=== PATIENT | female | born 1990 | race Caucasian/White ===

== ENCOUNTER 2018-07-25 11:10 | Outpatient (CLI) | payer OTHER, SELFPAY ==
--- NOTE | 2018-07-26 10:13 | PM.OBTRLD ---
Visit Information Visit Information Date of evaluation: 07/25/18 Primary OB Provider: Angelo Stanton On-call OB Provider: Luli Wynne Reason for Evaluation: Yes non-stress test non-stress test reason: other (pelvic pain) Evaluation Evaluation Baseline heart rate: 130 Variability: Moderate (11-25) monitor accelerations: Present monitor decelerations: Absent Diagnosis, Plan/Disposition Final Diagnosis (1) 32 weeks gestation of : Current Visit: No Status: Acute Plan/Disposition Plan: 28 year old at 32+3 weeks. Came to the center for pelvic pain. No contractions on monitor. Reactive NST. Suspect pubic symphysis pain. Has follow up in clinic this week with Dr. Stanton.
--- NOTE | 2018-07-26 10:16 | P.TNLD_ITS ---
Visit Information Visit Information Date of evaluation: 07/25/18 Primary OB Provider: Angelo Stanton On-call OB Provider: Luli Wynne Reason for Evaluation: Yes non-stress test non-stress test reason: other ( pelvic pain) Evaluation Evaluation Baseline heart rate: 130 Variability: Moderate (11-25) monitor accelerations: Present monitor decelerations: Absent Diagnosis, Plan/Disposition Final Diagnosis (1) 32 weeks gestation of : Current Visit: No Status: Acute Plan/Disposition Plan: 28 year old at 32+3 weeks. Came to the center for pelvic pain. No contractions on monitor. Reactive NST. Suspect pubic symphysis pain. Has follow up in clinic this week with Dr. Stanton.
== END 2018-07-25 12:01 | disposition home or self-care (01) ==
LOC: LABOR 11:15 → OB 12-20 11:52
PROVIDERS: PCP Family Medicine; Visit Provider Family Medicine
DX: Z34.83 Encounter for supervision of other normal pregnancy, third trimester (principal); R10.2 Pelvic and perineal pain; Z3A.32 32 weeks gestation of pregnancy
CPT/HCPCS: 59025; G0378; G0379

== ENCOUNTER → 2018-08-18 10:29 | Outpatient (CLI) | payer OTHER, SELFPAY ==
[2018-08-19 13:43] LABS: Strep Grp B PCR NEG for Grp B Strep
== END ==
PROVIDERS: PCP Family Medicine; Visit Provider Family Medicine
DX: Z34.83 Encounter for supervision of other normal pregnancy, third trimester (principal); Z3A.35 35 weeks gestation of pregnancy
CPT/HCPCS: 87653

== ENCOUNTER 2018-09-12 12:09 | Inpatient (IN) | payer OTHER, SELFPAY ==
[2018-09-12] VITALS (8 sets, daily range): BP systolic 82–117; BP diastolic 45–63; PULSE 68–86; RESP 12–16; TEMP 36.3–36.7; O2SAT 91–98
--- NOTE | 2018-09-12 | PATH_ITS ---
[facility] Accession Number: [id number] . 01 Material submitted: . LEFT AND RIGHT FALLOPIAN TUBESEGMENT . 02 Diagnosis: Segments of Left and Right Fallopian Tubes (Sterilization Procedure): No significant pathologic change. MRV/09/14/2018 . 02 Electronically signed: . Zane Ballesteros MD, Pathologist NPI- [id number] . 01 Gross description: . Received one formalin-filled container labeled with the patient's name and labeled left and right fallopian tube segments. Received in the same container are two non-fimbriated cylindrical-shaped portions of tissue. The first measures 0.5 cm in diameter by 0.7 cm in length; inked blue, bisected, and entirely submitted in cassette A1 to be possibly further sectioned at the time of embedding. The second piece measures 0.5 cm in diameter by 0.7 cm in length; inked blue, bisected, and entirely submitted in cassette A2 to be possibly further sectioned at the time of embedding. ([id number]) /FRR . 02 Pathologist provided ICD-10: Z30.2 . 02 CPT . [id number] Performed at: [address] [facility] [address], [place], [place] [id number] MD Blayne Burger MD Phone: [phone] Performed at: [facility] [address] [place], [place] [id number] MD James Parson MD Phone: [phone]
[2018-09-12] MEDS: LACTATED RINGERS 1,000 ML 42 ML IV ×4 (12:46→16:17)
[2018-09-12 12:49] LABS: Add Manual Diff / Slide Review NO; Basophils Percent Auto 0.6 % (0-2); Eosinophils Percent Auto 0.5 % (2-4); Hematocrit 35.7 % (36-46); Lymphocytes Percent Auto 17.3 % (25-40); Mean Corpuscular HGB Conc 33.5 % (30-36); Mean Corpuscular Hemoglobin 29.3 PG (26-34); Mean Corpuscular Volume 87.4 fL (80-100); Monocytes Percent Auto 6.8 % (3-14); Neutrophils Absolute Auto 8400 /uL (3000-5900); Neutrophils Percent Auto 74.8 % (50-75); Platelet Count 141 X10^3/uL (150-400); Red Blood Cell Count 4.09 X10^6/uL (4.0-5.2); Red Cell Distribution Width 14.3 % (11.6-14.8); White Blood Cell Count 11.3 X10^3/uL (4.5-11.0)
--- NOTE | 2018-09-12 13:07 | PM.HP.1 ---
History of Present Illness Date Patient Seen: 09/12/18 Time Patient Seen: 13:07 Chief complaint: repeat c section [facility] [id number] Narrative: 28-year-old female G3 para 2 at 39 weeks gestational age comes in for repeat section. Two previous C-sections. care was established early at the [place] base she transferred to our clinic at 30 weeks. problems include previous otherwise no other significant medical or obstetrical problems. She has had routine care. She had a total weight gain of approximately 20 lb. Patient states in the last week she has felt well. Baby's been moving an active she has no headache no fevers no chills. Patient has had no difficulty with nausea vomiting. She has had some ongoing back and pelvic discomfort. Patient has not had any difficulty with movement of the baby. labs blood type O positive antibody screen negative hematocrit 39.2 platelet count 235 VDRL nonreactive HIV negative GC chlamydia negative rubella immune. Patient and were reviewed the risks of a common complications. It would be okay if they needed a blood transfusion. And consent was obtained previously for bilateral tubal ligation which they would like to continue with. Past medical history patient denies any significant past medical history. Past surgical history C-sections. Social history. No smoking no drinking. Does not use illicit drugs Meds Home Medications Medication Instructions Recorded Confirmed Type 1 tab PO DAILY #90 tab 08/01/18 Rx vitamin,calcium,ukgflona-ckfi-muong acid tablet breast pump #1 each 09/08/18 09/08/18 Rx Allergies Allergy/AdvReac Type Severity Reaction Status Date / Time No Known Drug Allergies Allergy Verified 07/27/18 16:06 Exam Narrative Exam Narrative: . General: Alert no apparent distress. Affect is appropriate. Keith it is uncomfortable. HEENT: Neck is supple without lymphadenopathy pupils equal round and reactive. Cardio: S1-S2 regular rate and rhythm. Respiratory: Lungs clear to auscultation. Abdomen: Gravid. Extremities: Normal deep tendon reflexes trace edema. [place]: No contractions heart tones: heart tones 130 strip is reactive Objective Labs Result Diagrams: 09/12/18 11:30 Labs: Laboratory Results - last 24 hr 09/12/18 11:30 WBC 11.3 H RBC 4.09 Hgb 12.0 Hct 35.7 L MCV 87.4 MCH 29.3 MCHC 33.5 RDW 14.3 Plt Count 141 L Neut % (Auto) 74.8 Lymph % (Auto) 17.3 L [place] % (Auto) 6.8 Eos % (Auto) 0.5 L Baso % (Auto) 0.6 Neut # (Auto) 8400 H Assessment & Plan Plan: Assessment/Plan Narrative: 28-year-old G3 para 2 admitted the hospital for repeat section and bilateral tubal ligation. IV will be started. Blood count will be ordered. Consent was obtained and signed on the chart. Patient will be given cefotetan 2 g before surgical incision. Risks and common complications of the surgical procedure were reviewed including the tubal ligation.
--- NOTE | 2018-09-12 13:11 | P.HP_ITS ---
History of Present Illness Date Patient Seen: 09/12/18 Time Patient Seen: 13:07 Chief complaint: repeat c section [facility] [id number] Narrative: 28-year-old female G3 para 2 at 39 weeks gestational age comes in for repeat section. Two previous C-sections. care was established early at the [place] [place] base she transferred to our clinic at 30 weeks. problems include previous otherwise no other significant medical or obstetrical problems. She has had routine care. She had a total weight gain of approximately 20 lb. Patient states in the last week she has felt well. Baby's been moving an active she has no headache no fevers no chills. Patient has had no difficulty with nausea vomiting. She has had some ongoing back and pelvic discomfort. Patient has not had any difficulty with movement of the baby. labs blood type O positive antibody screen negative hematocrit 39.2 platelet count 235 VDRL nonreactive HIV negative GC chlamydia negative rubella immune. Patient and were reviewed the risks of a common complications. It would be okay if they needed a blood transfusion. And consent was obtained previously for bilateral tubal ligation which they would like to continue with. Past medical history patient denies any significant past medical history. Past surgical history C-sections. Social history. No smoking no drinking. Does not use illicit drugs Meds Home Medications Medication Instructions Recorded Confirmed Type 1 tab PO DAILY #90 tab 08/01/18 Rx vitamin,calcium,vkdudaoe-vovw-flmbc acid tablet breast pump #1 each 09/08/18 09/08/18 Rx Allergies Allergy/AdvReac Type Severity Reaction Status Date / Time No Known Drug Allergies Allergy Verified 07/27/18 16:06 Exam Narrative Exam Narrative: . General: Alert no apparent distress. Affect is appropriate. Keith it is uncomfortable. HEENT: Neck is supple without lymphadenopathy pupils equal round and reactive. Cardio: S1-S2 regular rate and rhythm. Respiratory: Lungs clear to auscultation. Abdomen: Gravid. Extremities: Normal deep tendon reflexes trace edema. [place]: No contractions heart tones: heart tones 130 strip is reactive Objective Labs Result Diagrams: 09/12/18 11:30 Labs: Laboratory Results - last 24 hr 09/12/18 11:30 WBC 11.3 H RBC 4.09 Hgb 12.0 Hct 35.7 L MCV 87.4 MCH 29.3 MCHC 33.5 RDW 14.3 Plt Count 141 L Neut % (Auto) 74.8 Lymph % (Auto) 17.3 L [place] % (Auto) 6.8 Eos % (Auto) 0.5 L Baso % (Auto) 0.6 Neut # (Auto) 8400 H Assessment & Plan Plan: Assessment/Plan Narrative: 28-year-old G3 para 2 admitted the hospital for repeat section and bilateral tubal ligation. IV will be started. Blood count will be ordered. Consent was obtained and signed on the chart. Patient will be given cefotetan 2 g before surgical incision. Risks and common complications of the surgical procedure were reviewed including the tubal ligation.
[2018-09-12] MEDS: CEFAZOLIN 2 GM/100 ML FROZ.PIGGY IV (13:50)
--- NOTE | 2018-09-12 14:12 | SUR.OPER ---
Supine on Padded OR bed, head on pillow, safety belt at thigh, arms secured on padded arm boards at <90 degrees abduction. Bump under right buttock. Legs uncrossed with pillow under knees, gel pad to heels, tape over blanket to lower legs.
--- NOTE | 2018-09-12 14:24 | SUR.OPER ---
[place] of viable female at 1419 - heart rate in the 120s prior to delivery.
--- NOTE | 2018-09-12 14:25 | SUR.OPER ---
Cord Blood and Placent to OB with L&D RN.
[2018-09-12] MEDS: ACETAMINOPHEN IV 1,000 MG/100 ML VIAL 400 MG IV (14:50)
--- NOTE | 2018-09-12 15:16 | PM.OP.1 ---
Operative Date/Time/Diagnoses Date of procedure: 09/12/18 Time of procedure: 15:16 Procedure & Clinicians Procedure: Procedure: Lower segment transverse section with bilateral tubal ligation Consent: Verbal and written informed consent were obtained from the patient placed on the chart. Indications: 28-year-old G3 para 2 for repeat section and tubal ligation Findings: [Normal uterus normal ovaries] [Normal female Apgars 9 and 9 direct OP] Anesthesia: [Spinal] Surgeon: [Dr. Angelo Stanton] Systems Auditor: Dr. Eryn Veras Estimated blood loss: [500 mL] Drains: [place] to gravity. IV fluids: 1800 cc Pathology: 2 segments of tubes that sent for pathology. Description of procedure: The patient was brought to the operating room after her spinal epidural, preparation, and [place] had been performed. The abdomen was prepped and draped in tested for for analgesia. When it was found to be adequate, a lower abdominal Pfannenstiel incision was made with first with a knife and cared down to the fascia with a second knife. The fascia was incised in the midline and extended laterally with a knife. Bleeding points were clamped with hemostats and Bovie coagulated. The rectus muscles were by blunt dissection. The rectus muscles were divided in the midline and the peritoneum was grasped with hemostats and carefully entered with Pink scissors. The incision was extended bilaterally. The bladder blade was then placed. The vesicoperitoneum was grasped with smooth pickups, entered with Metzenbaum scissors, and extended laterally. The bladder flap was created by gently blunt dissection and placed behind the bladder blade. The lower uterine segment was noted to be thin was carefully incised with the scalpel and extended laterally with the fingers. A live was found to be in the vertex position. The head was then easily elevated with the hand. Head was delivered without difficulty The baby was then suctioned and cried immediately, and was handed to the waiting attendant. The placenta was delivered manually. The uterus was explored with a wet lap sponge and found to be clear membranes. The first layer of the uterine closure was with running locking #1 chromic catgut suture. The second layer with an imbricating #1 chromic catgut suture. Hemostasis was carefully checked and found to be satisfactory. The bladder flap was closed with a running 2-0 chromic catgut suture. The fallopian tubes and ovaries were inspected and to be found normal bilaterally. The left fallopian tube was grasped with [place] fimbriated ends were identified. Left-sided tubal was done in modified [place] with an intervening segment taking. Left foot open tube was grasped with a [place] and the procedure was repeated on the right side. After sponge and needle counts were found to be correct the peritoneum was closed with 2-0 chromic catgut suture. Rectus muscles were approximated in the lower midline. The fascia was closed with a 2 running 0 Vicryl from lateral to midline. The subcutaneous tissue was approximated with interrupted 2.0 plain gut. Bleeding points were Bovie and coagulated. The subcutaneous tissue was approximated with 20 plain gut suture. The skin was closed with 1-0 running subcuticular stitch. Urinary output was adequate and normal patient left to the recovery room in good condition.
[2018-09-12] MEDS: KETOROLAC 30 MG/ML VIAL IV (21:25)
[2018-09-13] MEDS: KETOROLAC 30 MG/ML VIAL IV ×2 (05:56→11:32)
--- NOTE | 2018-09-13 07:47 | P.PN_ITS ---
Subjective Date Patient Seen: 09/13/18 Time Patient Seen: 07:45 Interval history: Doing well. [place] catheter is out up ambulating tolerating diet. No difficulty with urination yet. Pain is well controlled. Breast- feeding is going well. No significant edema vital signs have been stable. Using Toradol ibuprofen. Exam Vital Signs (past 8 hours): Oxygen Delivery Method Room Air Oxygen Flow Rate 2 Narrative Exam Narrative: . General: Alert no apparent distress. Affect is appropriate. Keith it is uncomfortable. HEENT: Neck is supple without lymphadenopathy pupils equal round and reactive. Cardio: S1-S2 regular rate and rhythm. Respiratory: Lungs clear to auscultation. Abdomen: Uterus firm. Incision clean dry and intact. Extremities: Normal deep tendon reflexes trace edema. Objective Labs Result Diagrams: 09/12/18 11:30 Labs: Laboratory Results - last 24 hr 09/12/18 09/12/18 11:30 11:30 WBC 11.3 H RBC 4.09 Hgb 12.0 Hct 35.7 L MCV 87.4 MCH 29.3 MCHC 33.5 RDW 14.3 Plt Count 141 L Neut % (Auto) 74.8 Lymph % (Auto) 17.3 L [place] % (Auto) 6.8 Eos % (Auto) 0.5 L Baso % (Auto) 0.6 Neut # (Auto) 8400 H Blood Type O Positive Antibody Screen Negative Assessment & Plan Plan: Assessment/Plan Narrative: Postoperative day 1 status post [place] removed SCDs removed up ambulating starting general diet. Monitor for bowel movement urination. Vital signs were stable afebrile. Recheck hemoglobin hematocrit today. Mild incisional drainage but normal. Continue with routine care. Blood pressure reflexes normal
--- NOTE | 2018-09-13 07:48 | P.PN_ITS ---
Subjective Date Patient Seen: 09/13/18 Time Patient Seen: 07:47 Interval history: Patient seen and examined. Doing well. weight today is 7 lb 1 oz. Breast-feeding is going well. Positive bowel movements urination. Blood pressures have been stable. As well as temperature. Respiratory rate normal. Mom has no concerns. Exam Vital Signs (past 8 hours): Oxygen Delivery Method Room Air Oxygen Flow Rate 2 Narrative Exam Narrative: Gen.: Alert and vigorous active and moving all extremities. HEENT: NCAT a positive red reflex. Tympanic canals are patent nares are patent. Oral mucosa is moist soft palate and lip are intact. Neck is supple without lymphadenopathy. No thyroid masses or cysts. Cardio: S1 and S2 regular rate and rhythm no appreciable murmurs. Respiratory: Lungs are clear to auscultation no wheezes or crackles. Normal respiratory effort. Abdomen: Soft no liver spleen enlargement no obvious hernia. Extremities:Full range of motion no hip clicks or pops. Normal femoral pulses. : Normal external genitalia. Anus is patent. Neurologic: Positive Kristin and suck reflex. Objective Labs Result Diagrams: 09/12/18 11:30 Labs: Laboratory Results - last 24 hr 09/12/18 09/12/18 11:30 11:30 WBC 11.3 H RBC 4.09 Hgb 12.0 Hct 35.7 L MCV 87.4 MCH 29.3 MCHC 33.5 RDW 14.3 Plt Count 141 L Neut % (Auto) 74.8 Lymph % (Auto) 17.3 L [place] % (Auto) 6.8 Eos % (Auto) 0.5 L Baso % (Auto) 0.6 Neut # (Auto) 8400 H Blood Type O Positive Antibody Screen Negative Assessment & Plan Plan: Assessment/Plan Narrative: Term female doing well. But vital signs are stable afebrile. [place] screening tests will be done today. Potential discharge tomorrow.
[2018-09-13 08:11] LABS: Add Manual Diff / Slide Review NO; Basophils Percent Auto 0.4 % (0-2); Eosinophils Percent Auto 0.8 % (2-4); Hematocrit 32.9 % (36-46); Lymphocytes Percent Auto 12.3 % (25-40); Mean Corpuscular HGB Conc 33.4 % (30-36); Mean Corpuscular Hemoglobin 29.5 PG (26-34); Mean Corpuscular Volume 88.2 fL (80-100); Monocytes Percent Auto 8.5 % (3-14); Neutrophils Absolute Auto 9900 /uL (3000-5900); Platelet Count 131 X10^3/uL (150-400); Red Blood Cell Count 3.73 X10^6/uL (4.0-5.2); Red Cell Distribution Width 14.6 % (11.6-14.8); White Blood Cell Count 12.6 X10^3/uL (4.5-11.0)
[2018-09-13] MEDS: PRENATAL VIT,CALC/IRON/FOLIC 1 TABLET 1 TAB PO (09:33)
[2018-09-13] MEDS: DOCUSATE 250 MG CAPSULE PO (09:33)
[2018-09-13] MEDS: OXYCODONE/ACETAMINOPHEN 5/325 TABLET 2 TAB PO (10:27)
--- NOTE | 2018-09-13 17:12 | P.DS_ITS ---
History of Present Illness [id number] Narrative: 28-year-old female G3 para 2 at 39 weeks gestational age comes in for repeat section. Two previous C-sections. care was established early at the [place] base she transferred to our clinic at 30 weeks. problems include previous otherwise no other significant medical or obstetrical problems. She has had routine care. She had a total weight gain of approximately 20 lb. Patient states in the last week she has felt well. Baby's been moving an active she has no headache no fevers no chills. Patient has had no difficulty with nausea vomiting. She has had some ongoing back and pelvic discomfort. Patient has not had any difficulty with movement of the baby. labs blood type O positive antibody screen negative hematocrit 39.2 platelet count 235 VDRL nonreactive HIV negative GC chlamydia negative rubella immune. Patient and were reviewed the risks of a common complications. It would be okay if they needed a blood transfusion. And consent was obtained previously for bilateral tubal ligation which they would like to continue with. Past medical history patient denies any significant past medical history. Past surgical history C-sections. Social history. No smoking no drinking. Does not use illicit drugs Discharge Providers Date of admission: 09/12/18 12:09 Primary care physician: Angelo Stanton MD Consults: 09/12/18 16:39 Consult to Functional Analyst Routine Comment: 09/12/18 17:35 Consult to Functional Analyst Routine Comment: Discharge provider: Angelo Stanton MD Discharge Date: 09/13/18 Summary Discharge Diagnosis: Intrauterine Repeat section with tubal ligation Routine care Hospital Course: Routine care. Mom left before typical discharge. As she was anxious to go home 24 hr after . I encouraged to stay 1 more day. She requested to be discharged. She will watch for bleeding infection fevers chills. Lower extremity edema or swelling. She will call office immediately a problems. Exam Vital Signs (past 8 hours): Oxygen Delivery Method Room Air Oxygen Flow Rate 2 Objective Labs Result Diagrams: 09/13/18 08:05 Labs: Laboratory Results - last 24 hr 09/13/18 08:05 WBC 12.6 H RBC 3.73 L Hgb 11.0 L Hct 32.9 L MCV 88.2 MCH 29.5 MCHC 33.4 RDW 14.6 Plt Count 131 L Neut % (Auto) 78.0 H Lymph % (Auto) 12.3 L [place] % (Auto) 8.5 Eos % (Auto) 0.8 L Baso % (Auto) 0.4 Neut # (Auto) 9900 H Discharge Plan Discharge Plan Patient Disposition: Home Discharge Med Rec/Prescriptions Prescriptions: New docusate sodium [Colace] 100 mg capsule 200 mg PO BEDTIME Qty: 30 RF: 0 oxycodone-acetaminophen [Percocet] 5-325 mg tablet 2 tab PO Q4-6H PRN (Reason: pain) Qty: 30 RF: 0 ibuprofen [IBU] 600 mg tablet 600 mg PO TID PRN (Reason: pain) Qty: 30 RF: 0 Continue prenat.vits,josé miguel,fke-ixmw-fpjua [ Vitamin] tablet 1 tab PO DAILY Qty: 90 RF: 3 breast pump device .ROUTE .MEDSUPPLY Qty: 1 RF: 0 Discharge Data Primary Care Provider: Angelo Stanton Attending Provider: Angelo Stanton Admit Date/Time: 09/12/18 12:09
[2018-09-13 17:29] VITALS: BP 117/52; PULSE 74; RESP 16; TEMP 36.3
== END 2018-09-13 18:10 | disposition home or self-care (01) | DRG 785 ==
PROVIDERS: Admitting Provider Family Medicine; PCP Family Medicine; Visit Provider Family Medicine
PROC: 10D00Z1 Extraction of Products of Conception, Low, Open Approach (ICD-10-PCS; CPT 59514; principal; 2018-09-12 13:30)
DX: O34.219 Maternal care for unspecified type scar from previous cesarean delivery (principal); Z3A.39 39 weeks gestation of pregnancy; Z37.0 Single live birth; Z30.2 Encounter for sterilization
CPT/HCPCS: 36415; 59050; 59514; 59515; 85025; 86850; 86900; 86901; J0131; J0690; J1885; J2274; J2405; J2590

== ENCOUNTER → 2020-12-20 09:17 | Outpatient (CLI) | payer OTHER, SELFPAY ==
[2020-12-20 10:34] LABS: Add Manual Diff / Slide Review NO; Basophils Absolute Auto 0 /uL (0-100); Basophils Percent Auto 0.5 % (0-2); Eosinophils Absolute Auto 100 /uL (0-450); Eosinophils Percent Auto 1.2 % (2-4); Hematocrit 40.2 % (36-46); Lymphocytes Absolute Auto 1800 /uL (1100-4500); Lymphocytes Percent Auto 26.4 % (25-40); Mean Corpuscular HGB Conc 32.3 % (30-36); Mean Corpuscular Hemoglobin 28.1 PG (26-34); Monocytes Absolute Auto 400 /uL (0-900); Monocytes Percent Auto 6.5 % (3-14); Neutrophils Absolute Auto 4300 /uL (1500-7000); Neutrophils Percent Auto 65.4 % (50-75); Platelet Count 210 X10^3/uL (150-400); Red Blood Cell Count 4.63 X10^6/uL (4.0-5.2); Red Cell Distribution Width 13.7 % (11.6-14.8); White Blood Cell Count 6.6 X10^3/uL (4.5-11.0)
[2020-12-20 10:47] LABS: Alanine Aminotransferase 21 IU/L (<35); Albumin 4.7 g/dL (3.5-5.0); Albumin Globulin Ratio 1.3 (1.0-2.8); Alkaline Phosphatase 122 U/L (38-126); Aspartate Aminotransferase 22 IU/L (14-36); BUN Creatinine Ratio 7.7 (6-22); Bilirubin Total 1.4 mg/dL (0.2-1.3); Blood Urea Nitrogen 5 mg/dL (7-17); Calcium 9.5 mg/dL (8.4-10.2); Carbon Dioxide 27 mmol/L (22-32); Chloride 105 mmol/L (98-107); Estimated Glomerular Filt Rate > 60.0 mL/min (>60); Globulin 3.6 g/dL (1.7-4.1); Glucose 83 mg/dL (70-100); HEMOLYSIS < 15 (0-50); Potassium 3.5 mmol/L (3.4-5.1); Sodium 140 mmol/L (137-145); Total Protein 8.3 g/dL (6.3-8.2)
[2020-12-20 11:39] LABS: Thyroid Stimulating Hormone 0.801 uIU/mL (0.47-4.68)
== END ==
PROVIDERS: PCP Family Medicine; Referring Provider Family Medicine; Visit Provider Family Medicine
DX: Z00.00 Encounter for general adult medical examination without abnormal findings (principal)
CPT/HCPCS: 36415; 80053; 84443; 85025

== ENCOUNTER 2020-12-25 12:15 | Emergency (ER) | payer OTHER, SELFPAY ==
[2020-12-25 12:30] VITALS: BP 119/68; PULSE 80; RESP 18; TEMP 36.9; O2SAT 96; BMI 24.9
--- NOTE | 2020-12-25 13:23 | ED_ITS ---
HPI - Female Genitourinary <HARPER Ulloa - Last Filed: 12/25/20 15:13> General Chief complaint: Urogenital-Female Stated complaint: Thinks vaginal prolapse Time Seen by Provider: 12/25/20 12:59 Source: patient Mode of arrival: Ambulatory Limitations: no limitations History of Present Illness HPI Narrative: The patient is a 30-year-old female former smoker with history of tubal ligation who presents with a chief complaint of ?I feel like my vagina is prolapsing/this she states that she felt as though she had a tampon in for a few days, then looked yesterday and saw that ?the hole is closed.She states she feels like she has to hold her genitals in. Complains of slight bloating, does complain of increased vaginal discharge that is abnormal for her. Denies any dysuria urgency or frequency. Denies any possibility of related to her tubal ligation. She denies any possibility of sexually transmitted infections as her is deployed. Related Data Previous Rx's Medication Instructions Recorded omeprazole 20 mg capsule,delayed 20 mg PO DAILY #30 cap 12/23/20 release Allergies Allergy/AdvReac Type Severity Reaction Status Date / Time No Known Drug Allergies Allergy Verified 12/23/20 09:20 Review of Systems <HARPER Ulloa - Last Filed: 12/25/20 15:13> Review of Systems Narrative: GENERAL: Denies chills, fatigue, malaise, fever, sweats. HEENT: Denies sinus pain, ear pain, sore throat, difficulty swallowing, dizziness. RESPIRATORY: Denies dyspnea, cough, wheezing, hemoptysis, sputum. CARDIOVASCULAR: Denies chest pain, palpitations, orthopnea, edema, GASTROINTESTINAL: Denies nausea, vomiting, abdominal pain, diarrhea, constipation, melena. : See HPI MUSCULOSKELETAL: denies weakness, joint pain, or bony pain SKIN: Denies rash, skin lesions, or other NEUROLOGIC: Denies weakness, headache, numbness, change in speech, confusion, seizures, incoordination. PSYCHIATRIC: No concerning psychosocial issues. 12 point review of systems is negative except for those stated above Patient History <HARPER Ulloa - Last Filed: 12/25/20 15:13> Surgical History H/O section H/O tubal ligation H/O tubal ligation alcohol intake frequency: 0-2 drinks per day Substance Use Type: marijuana Exam <HARPER Ulloa - Last Filed: 12/25/20 15:13> Narrative Exam Narrative: GENERAL: This is a well-nourished, well-developed patient, in no acute distress HEAD: Atraumatic. Normocephalic. No temporal or scalp tenderness. EYES: Pupils equal round and reactive. Extraocular motions intact. No scleral icterus. No injection or drainage. ENT: Nose without bleeding, purulent drainage or septal hematoma. Wearing a mask. Airway patent. NECK: Trachea midline. No JVD or lymphadenopathy. Supple, nontender, no meningeal signs. CARDIOVASCULAR: Regular rate and rhythm RESPIRATORY: Clear to auscultation. Breath sounds equal bilaterally. No wheezes, rales, or rhonchi. No cough. No increased respiratory effort. No accessory muscle use. GASTROINTESTINAL: Abdomen soft, active bowel sounds, non-tender, nondistended. No hepato-splenomegaly, or palpable masses. : Pelvic exam with Susan RN at bedside. No external organ prolapse noted. Slight white mucousy cervical discharge noted. No cervical motion tenderness or adnexal tenderness on bimanual exam. EXTREMITIES: No clubbing, cyanosis, or edema. No joint tenderness, effusion, or edema noted. BACK: Nontender without deformity or crepitance. No flank tenderness. NEURO: AOx3. SKIN: No rash or erythema. Initial Vital Signs Initial Vital Signs: Vital Signs Temperature 98.5 F 12/25/20 12:30 Pulse Rate 80 12/25/20 12:30 Respiratory Rate 18 12/25/20 12:30 Blood Pressure 119/68 12/25/20 12:30 Pulse Oximetry 96 12/25/20 12:30 <Roshni Brambila DO - Last Filed: 12/26/20 08:13> Initial Vital Signs Initial Vital Signs: Vital Signs Temperature 98.5 F 12/25/20 12:30 Pulse Rate 80 12/25/20 12:30 Respiratory Rate 18 12/25/20 12:30 Blood Pressure 119/68 12/25/20 12:30 Pulse Oximetry 96 12/25/20 12:30 Scores <NORTH UlloaBC - Last Filed: 12/25/20 15:13> GCS [place] coma scale eye opening: Spontaneous [place] coma scale verbal response: Orientated [place] coma scale motor response: Obey commands [place] coma scale total score: 15 Course <Brittnee Wilson PAID SEARCH MARKETING ANALYST-BC - Last Filed: 12/25/20 15:13> Orders Ordered: ED Orders 12/25/20 13:54 Genital Culture Stat Wet Prep Tric BV Magui Stat Vital Signs Vital signs: Vital Signs - 8 hr 12/25/20 12:30 12/25/20 15:06 Temperature 98.5 F Pulse Rate 80 78 Respiratory Rate 18 16 Blood Pressure 119/68 116/78 Pulse Oximetry 96 97 <Roshni Brambila DO - Last Filed: 12/26/20 08:13> Orders Ordered: ED Orders 12/25/20 13:54 Genital Culture Stat Wet Prep Tric BV Magui Stat Vital Signs Vital signs: Vital Signs - 8 hr 12/25/20 12:30 12/25/20 15:06 Temperature 98.5 F Pulse Rate 80 78 Respiratory Rate 18 16 Blood Pressure 119/68 116/78 Pulse Oximetry 96 97 MDM - Female Genitourinary <Brittnee WilsonCHANTE-BC - Last Filed: 12/25/20 15:13> Lab Data Labs: Point of Care Testing Test Results Negative Urine Dip Bedside Urine Glucose Negative Bedside Urine Bilirubin - Negative Bedside Urine Ketone - Negative Urine Specific [place] 1.015 Bedside Urine Occult Blood - Negative Bedside Urine pH 6.0 Bedside Urine Protein - Negative Bedside Urine Urobilinogen - Negative Bedside Urine Nitrite - Negative Bedside Urine Leukocytes - Negative Esterase MDM Narrative Medical decision making narrative: The patient is a 30-year-old female who presents with a chief complaint of a possible pelvic organ prolapse. She does not have any external prolapse on exam. Urinalysis shows no signs of infection, given statement of increased vaginal discharge, swabs were taken no evidence of yeast or BV at this point time. Cultures pending. Did offer to order pelvic ultrasound, but patient elected to hold off and follow up with her primary care provider instead. Patient mentions pelvic floor physical therapy, states that she might pursue this. Discussed going back to the ER for acute concerns. This includes abdominal pain with fever, inability keep down fluids etcetera. Patient has no questions or concerns upon discharge states understanding of return precautions as well as follow-up care. <Roshni Brambila DO - Last Filed: 12/26/20 08:13> Lab Data Labs: Point of Care Testing Test Results Negative Urine Dip Bedside Urine Glucose Negative Bedside Urine Bilirubin - Negative Bedside Urine Ketone - Negative Urine Specific [place] 1.015 Bedside Urine Occult Blood - Negative Bedside Urine pH 6.0 Bedside Urine Protein - Negative Bedside Urine Urobilinogen - Negative Bedside Urine Nitrite - Negative Bedside Urine Leukocytes - Negative Esterase Discharge Plan Departure Patient Disposition: Home Clinical Impression: Vaginal irritation, Vaginal discharge Instructions: DI for Vaginal Discharge Activity Restrictions/Additional Instructions: Thank you for trusting us with your care today. As discussed, there is no indication of urinary tract infection, or yeast infection/bacterial vaginosis. Please follow-up with primary care provider in the next few days. We will call you if anything comes up on the cultures As discussed, please monitor for products and exposures. Please come back to the emergency department for any acute concerns. Prescriptions: No Action omeprazole 20 mg capsule,delayed release(DR/EC) 20 mg PO DAILY Qty: 30 RF: 3 Referrals: Angelo Stanton MD [Primary Care Provider] - <Roshni Brambila DO - Last Filed: 12/26/20 08:13> Cosign ED Attending Cosignature Attestation: I was immediately available in the department for consultation. Documentation has been reviewed. I agree with assessment and plan.
[2020-12-25 15:06] VITALS: BP 116/78; PULSE 78; RESP 16; O2SAT 97
== END 2020-12-25 15:06 | disposition home or self-care (01) ==
PROVIDERS: Emergency Provider Nurse Practitioner Family; PCP Family Medicine
DX: N89.8 Other specified noninflammatory disorders of vagina (principal)
CPT/HCPCS: 81003; 81025; 87070; 87205; 87210; 99281; 99282

== ENCOUNTER 2021-05-11 13:20 | Emergency (ER) | payer OTHER, SELFPAY ==
[2021-05-11 13:24] VITALS: BP 111/71; PULSE 94; RESP 20; TEMP 36.7; O2SAT 97; BMI 22.8
--- NOTE | 2021-05-11 14:43 | DI.RAD.S_ITS ---
PROCEDURE: XR SACRUM COCCYX MIN 2V INDICATIONS: Fall TECHNIQUE: 3 views of the sacrum and coccyx acquired. COMPARISON: None. FINDINGS: Bones: No fractures or dislocations. No suspicious bony lesions. Soft tissues: Visualized bowel gas pattern is normal. No suspicious soft tissue densities. IMPRESSION: No evidence acute bony abnormality of the sacrum and coccyx Dictated by: Milton Elkins M.D. on 05/11/2021 at 13:58 Approved by: Milton Elkins M.D. on 05/11/2021 at 13:59
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
[2021-05-11 17:10] VITALS: BP 113/76; PULSE 84; RESP 16; O2SAT 98
== END 2021-05-11 17:11 | disposition home or self-care (01) ==
PROVIDERS: Emergency Provider Emergency Medicine; PCP Family Medicine
DX: S39.92XA Unspecified injury of lower back, initial encounter (principal); M53.3 Sacrococcygeal disorders, not elsewhere classified; W19.XXXA Unspecified fall, initial encounter
CPT/HCPCS: 72220; 99283

== ENCOUNTER → 2021-10-01 14:28 | Outpatient (CLI) | payer OTHER, SELFPAY ==
--- NOTE | 2021-10-01 14:29 | DI.RAD.S_ITS ---
PROCEDURE: XR THORACIC SPINE 3V INDICATIONS: pain at approx T10-T12 TECHNIQUE: AP and lateral views of the thoracic spine were acquired. COMPARISON: None. FINDINGS: Bones: No fractures or dislocations. No suspicious bony lesions. 12 pairs of ribs are noted, and appear intact where visualized. Mildly prominent kyphosis of the lower thoracic spine without associated anterior compression deformities. This is likely positional. Soft tissues: No paravertebral stripe thickening. IMPRESSION: Thoracic spine without acute fracture or malalignment. No significant spondylitic changes identified. Dictated by: Aaron Balderas M.D. on 10/01/2021 at 15:36 Approved by: Aaron Balderas M.D. on 10/01/2021 at 15:37
== END ==
PROVIDERS: PCP Family Medicine; Referring Provider Physician Assistant; Visit Provider Physician Assistant
DX: M54.6 Pain in thoracic spine (principal); M40.204 Unspecified kyphosis, thoracic region
CPT/HCPCS: 72072

== ENCOUNTER → 2021-10-28 08:08 | Outpatient (CLI) | payer OTHER, SELFPAY ==
[2021-10-28 10:17] LABS: Urine N gonorrhoeae NOT DETECTED
[2021-10-28 10:18] LABS: Urine Chlamydia NOT DETECTED
== END ==
PROVIDERS: PCP Family Medicine; Referring Provider Nurse Practitioner Family; Visit Provider Nurse Practitioner Family
DX: N89.8 Other specified noninflammatory disorders of vagina (principal)
CPT/HCPCS: 87086; 87210; 87491; 87591